=== PATIENT | female | born 1985 | race Caucasian/White ===

== ENCOUNTER 2017-05-23 12:01 | Inpatient (IN) | payer BC ==
[2017-05-23] MEDS ORDERED: OXYTOCIN/NORMAL SALINE 20 UNIT/1,000 ML RTUINJ ONE (12:29)
[2017-05-23] MEDS ORDERED: LIDOCAINE 1% INJ-PF (10 MG/ML) 30 ML SDV ONE ×2 (12:29→12:59)
[2017-05-23] MEDS ORDERED: MISOPROSTOL 0.2 MG TABLET ONE (12:29)
[2017-05-23] MEDS ORDERED: RINGERS SOLUTION,LACTATED 1,000 ML IV PRN (12:39)
[2017-05-23] MEDS ORDERED: RINGERS SOLUTION,LACTATED 1,000 ML IV ONE (12:39)
[2017-05-23 12:42] LABS: APPEARANCE,URINE SLIGHTLY-CLOUDY; BILIRUBIN,URINE NEGATIVE (NEGATIVE); GLUCOSE, URINE NEGATIVE (NEGATIVE); KETONES,URINE TRACE mg/dL (NEGATIVE); LEUKOCYTE ESTERASE,URINE NEGATIVE (NEGATIVE); NITRITE,URINE NEGATIVE (NEGATIVE); PROTEIN,URINE NEGATIVE (NEGATIVE); URINE SPECIFIC GRAVITY 1.011; UROBILINOGEN,URINE NEGATIVE mg/dL (<2.0)
[2017-05-23 13:09] LABS: URINE BARBITURATES SCREEN NEGATIVE; URINE METHADONE SCREEN NEGATIVE; URINE OPIATES LOW NEGATIVE; URINE PHENCYCLIDINE SCREEN NEGATIVE
[2017-05-23 13:27] LABS: ABSOLUTE BASOPHILS # (AUTO) 0.1 10^3/uL (0.0-0.2); ABSOLUTE LYMPHOCYTES (AUTO) 1.6 10^3/uL (0.5-4.7); ABSOLUTE MONOCYTES (AUTO) 0.6 10^3/uL (0.1-1.4); ABSOLUTE NEUT (AUTO) 7.4 10^3/uL (1.7-8.2); BASOPHILS % (AUTO) 0.6 % (0-2); EOSINOPHILS % (AUTO) 0.3 % (0-6); HEMATOCRIT 39.8 % (36.0-47.0); HEMOGLOBIN 13.8 g/dL (12.0-15.5); HGB HCT DIFFERENCE 1.6; LYMPHOCYTES % (AUTO) 16.6 % (13-45); MEAN CORPUSCULAR HEMOGLOBIN 29.7 pg (27.0-33.4); MEAN CORPUSCULAR HGB CONC 34.7 g/dL (32.0-36.0); MEAN CORPUSCULAR VOLUME 85 fl (80-97); MONOCYTES % (AUTO) 6.4 % (3-13); RED BLOOD COUNT 4.66 10^6/uL (3.72-5.28); RED CELL DISTRIBUTION WIDTH 13.7 % (11.5-14.0); SEGMENTED NEUTROPHILS % (AUTO) 76.1 % (42-78); WHITE BLOOD COUNT 9.7 10^3/uL (4.0-10.5)
[2017-05-23 13:47] LABS: ARTERIAL BLOOD BASE EXCESS -5.2 mmol/L
[2017-05-23] MEDS ORDERED: METHYLERGONOVINE MALEATE INJ/PF 0.2 MG/1 ML AMPULE ONE (13:54)
[2017-05-23] MEDS ORDERED: OXYCODONE-ACETAMINOPHEN 5-325 MG TABLET ONE (14:02)
[2017-05-23] MEDS ORDERED: DIBUCAINE 1% OINTMENT 28 GM TP PRN (15:39)
[2017-05-23] MEDS ORDERED: OXYTOCIN/NORMAL SALINE 1,000 ML IV PRN (15:39)
[2017-05-23] MEDS ORDERED: BENZOCAINE/MENTHOL AEROSOL SPRAY 56 ML TOP PRN (15:39)
[2017-05-23] MEDS ORDERED: DIPHENHYDRAMINE HCL 25 MG CAPSULE PO PRN (15:39)
[2017-05-23] MEDS ORDERED: MISOPROSTOL 0.2 MG TABLET PR ONE (15:39)
[2017-05-23] MEDS ORDERED: NA PHOS,M-B/NA PHOS,DI-BA (ADULT) 133 ML ENEMA PR PRN (15:39)
[2017-05-23] MEDS ORDERED: PSEUDOEPHEDRINE HCL 30 MG TABLET PO PRN (15:39)
[2017-05-23] MEDS ORDERED: ACETAMINOPHEN WITH CODEINE #3 TABLET PO PRN ×2 (15:39)
[2017-05-23] MEDS ORDERED: ACETAMINOPHEN 650 MG SUPP.RECT PR PRN (15:39)
[2017-05-23] MEDS ORDERED: METHYLERGONOVINE MALEATE INJ/PF 0.2 MG/1 ML AMPULE IM ONE (15:39)
[2017-05-23] MEDS ORDERED: DIPH/PERTUSS(ACELL)/TETANUS VAC/PF 0.5 ML SYR (>=10YO) IM PRN (15:39)
[2017-05-23] MEDS ORDERED: MAGNESIUM HYDROXIDE SUSP 30 ML UDCUP PO PRN (15:39)
[2017-05-23] MEDS ORDERED: PROMETHAZINE HCL 25 MG TABLET PO PRN (15:39)
[2017-05-23] MEDS ORDERED: MEASLES,MUMPS&RUBELLA VACC/PF 0.5 ML VIAL SUBCUT PRN (15:39)
[2017-05-23] MEDS ORDERED: PROMETHAZINE HCL 25 MG SUPP.RECT PR PRN (15:39)
[2017-05-23] MEDS ORDERED: GLYCERIN/WITCH HAZEL LEAF 1 EACH MED..PAD TP PRN (15:39)
[2017-05-23] MEDS ORDERED: PROMETHAZINE HCL INJ 25 MG/1 ML VIAL IV PRN (15:39)
--- NOTE | 2017-05-23 15:49 | Admission Physical ---
Datetime Report Generated by CPN: 05/23/2017 15:49 CURRENT ADMISSION Hx Assessment: The History has been Reviewed and is Current Chief Complaint: Uterine Contractions Indication for Induction: Not Applicable Admit Plan: Admit to Unit ALLERGIES Medication Allergies: No Medication Allergies: No Known Allergies (05/23/2017) Medication Allergies: none Latex: No Latex Allergies Food Allergies: none Environmental Allergies: none OBSTETRICAL HISTORY EDC: 05/30/2017 00:00 : 1 Para: 0 Term: 0 : 0 SAB: 0 IAB: 0 Ectopic: 0 Livin Cesareans: 0 VBACs: 0 Multiple Births: 0 Gestational Diabetes: No Rh Sensitization: No Incompetent Cervix: No DAVID: No Infertility: No ART Treatment: No Uterine Anomaly: No IUGR: No Hx Previous C/S: No Macrosomia: No Hx Loss/Stillborn: No PIH: No Hx : No Placenta Previa/Abruption: No Depression/PP Depression: No PTL/PROM: No Post Hemorrhage: No Current Procedures: Ultrasound SEE RECORDS Alcohol: No Marijuana : No Cocaine: No Other Illicit Drugs: No Cigarettes: Never Smoker. 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: No Heart Disease: No Hosp/Surgery: No Autoimmune Disorder: No Anesthetic Complications: No Kidney Disease: No Abnormal Pap Smear: No Neuro/Epilepsy: No Psychiatric Disorders: No Other Medical Diseases: No Hepatitis/Liver Disease: No Significant Family History: No Varicosities/Phlebitis: No Trauma/Violence : No Thyroid Dysfunction: No INFECTIOUS HISTORY Gonorrhea: No Genital Herpes: No Chlamydia: No Tuberculosis: No Syphilis: No Hepatitis: No HIV/AIDS Exposure: No Rash or Viral Illness: No HPV: No PHYSICAL EXAM General: Normal HEENT: Normal Neurologic: Normal Thyroid: Normal Heart: Normal Lungs: Normal Breast: Deferred Back: Normal Abdomen: Normal Genitourinary Exam: Normal Extremities: Normal DTRs: Normal Pelvic Type: Adequate Physical Exam Comments: GBS neg Rubella non immune Vital Signs: Reviewed VAGINAL EXAM Dilatation: 9 Effacement: 100 Station: 0 MEMBRANES Membranes: Bulging FETUS A EGA: 39.0 Monitoring: External US FHR- Baseline: 130 Variability: Moderate 6-25bpm Accelerations: 15X15 Decelerations: None Presentation: Vertex Admit Comment: Admitted to labor and delivery in active labor, started at 0600, VE 9/100/vtx/ bulging BOW, ruptured. clear fluid, Cat 1 strip, uc's q 2-3 min x 60 sec Admit, anticipate , plan pudenal block by Dr. Teran PLANS FOR LABOR AND DELIVERY Labor and Delivery: None Pain Management: None Feeding Preference: Breast Benefit of Breast Feed Discussed: Yes Circumcision: N/A INFORMED CONSENT Assignment: Betty Teran MD Signature: with User ID: [email or web address] Signature: with User ID: [email or web address] : with User ID: [email or web address] : with User ID: [email or web address]
--- NOTE | 2017-05-23 17:04 | Delivery Summary ---
Del Sum A-C Datetime Report Generated by CPN: 05/23/2017 17:04 DELIVERY PERSONNEL DELIVERY PERSONNEL: [phone] Delivery Doctor:: Nimisha Dinero CNM Labor and Delivery Nurse:: Carlie Yuan RNtraining engineer Nurse:: DENISSE Baires Nursery Nurse:: Johnna Skaggs RN Flight Radio Operator/ROOFING MACHINE TENDER: Cristal Paz CNA II Flight Radio Operator/ROOFING MACHINE TENDER: Nuzhat Tang, PERFUME COMPOUNDER MATERNAL INFORMATION Delivery Anesthesia: Pudendal Medications After Delivery: Pitocin Bolus-Please Comment; Pitocin Drip 20 Units/1000ml NSS Meds After Delivery Comment: Pitocin 20 units in 1 L NS bolusing per order Estimated Blood Loss (ml): 400 Maternal Complications: Precipitous Labor (<3hrs) Provider Comments: Dr. Teran performed a pudendal block bilaterally and started pushing immediately. viable female from OA to JENNIFER over intact perineum and left periurethral, cord gas and cord blood to lab. Spont delivery of grossly normal intact placenta, with 3 VC, several clots with placenta, ? small abruption, periurethral repaired with 3-0 chromic without difficult, cath for urethral patency, large amount of urine. EBL 400cc, uterine atony, massage, Pitocin, cytotec 600 mcg and Methergine 0.2 mg Baby was placed on mothers abd, nursery in attendance for delivery mom and baby remain in recovery in stable condition (Annotations: Data stored by CPN on behalf of user) LABOR SUMMARY EDC: 05/30/2017 00:00 No. Babies in Womb: 1 Attempted: No Labor Anesthesia: Intrathecal LABOR INFORMATION Reason for Induction: Not Applicable Onset of Labor: 05/23/2017 06:00 Complete Dilatation: 05/23/2017 13:13 Oxytocin: N/A Group B Beta Strep: negative Antibiotics # of Doses: 0 Antibiotics Time of Last Dose: n/a Name of Antibiotic Given: n/a Steroids Given: None Reason Steroids Not Administered: Not Applicable MEMBRANES Membranes Rupture Method: Artificial Rupture of Membranes: 05/23/2017 12:27 Length of Rupture (hr): 1.02 Amniotic Fluid Color: Clear Amniotic Fluid Amount: Moderate Amniotic Fluid Odor: Normal STAGES OF LABOR Stage 1 hr: 7 Stage 1 min: 13 Stage 2 hr: 0 Stage 2 min: 15 Stage 3 hr: 0 Stage 3 min: 16 Total Time in Labor hr: 7 Total Time in Labor min: 44 VAGINAL DELIVERY Episiotomy: None Laceration Extension: First Degree Laceration Type: Periurethral Laceration Repair: Yes Sponge Count Correct: N/A Sharps Count Correct: No CSECTION DELIVERY Primary Indication: N/A Secondary Indication: N/A CSection Incidence: N/A Labor: N/A Elective: N/A CSection Incision: N/A BABY A INFORMATION Delivery Date/Time: 05/23/2017 13:28 Method of Delivery: Vaginal Born in Route : No : N/A Forceps: N/A Vacuum Extraction: N/A Shoulder Dystocia : No PRESENTATION/POSITION BABY A Presentation: Cephalic Cephalic Presentation: Vertex Vertex Position: Left Occipital Anterior Breech Presentation: N/A PLACENTA INFORMATION BABY A Placenta Delivery Time : 05/23/2017 13:44 Placenta Method of Delivery: Spontaneous Placenta Status: Delivered SCORES BABY A Heart Rate 1 min: >100 bpm Resp Effort 1 min: Good Cry Reflex Irritability 1 min: Cough or Sneeze or Pulls Away Muscle Tone 1 min: Some Flexion of Extremities Color 1 min: Blue/Pale Resuscitation Effort 1 min: Tactile Stimulation SCORE 1 MIN: 7 Heart Rate 5 min: >100 bpm Resp Effort 5 min: Good Cry Reflex Irritability 5 min: Cough or Sneeze or Pulls Away Muscle Tone 5 min: Active Motion Color 5 min: Body [place], Extremities Blue Resuscitation Effort 5 min: N/A SCORE 5 MIN: 9 Resuscitation Effort 10 min: N/A INFORMATION BABY A Gestational Age at Delivery: 39.0 Gestational Status: Full Term- 39- 40.6 Weeks Outcome : Liveborn Condition : Stable Infant Sex: Female IDENTIFICATION BABY A Verification Date/Time: 05/23/2017 13:39 ID Band Number: [id number] Mother's Name Verified: Yes Infant RN Verifying : Echo Yuan, DAVID, AWojciech Paz, ALEXUS WEIGHT/LENGTH BABY A Birthweight (gm): 3400 Infant Weight (lb): 7 Weight (oz): 8 Length (in): 19.25 Infant Length (cm): 48.90 CORD INFORMATION BABY A No. Cord Vessels: 3 Nuchal Cord : N/A Cord Blood Taken: Yes-For Storage (Mom's Blood type +) Infant Suction: Mouth; Nose ASSESSMENT BABY A Complications: None Physical Findings at Delivery: Within Normal Limits Infant Respirations: Appears Normal Skin to Skin: Yes Skin to Skin Time (min): 60 Coal Dumping Equipment Operator/ALS Called : No Infant Care By: Vito Katz RN Transferred To: Remains with Mother BABY B INFORMATION : N/A
[2017-05-23] MEDS: DOCUSATE SODIUM 100 MG CAPSULE PO SCH (17:28)
[2017-05-23] MEDS: FERROUS SULFATE 325 MG TABLET PO SCH (17:29)
[2017-05-23] MEDS: FAMOTIDINE 20 MG TABLET PO SCH (21:40)
[2017-05-23] MEDS: IBUPROFEN 800 MG TABLET PO SCH (21:41)
[2017-05-24] MEDS: IBUPROFEN 800 MG TABLET PO SCH ×3 (06:12→21:03)
[2017-05-24 07:55] LABS: HEMATOCRIT 32.9 % (36.0-47.0); HGB HCT DIFFERENCE 1.3; MEAN CORPUSCULAR HEMOGLOBIN 29.7 pg (27.0-33.4); MEAN CORPUSCULAR HGB CONC 34.6 g/dL (32.0-36.0); MEAN CORPUSCULAR VOLUME 86 fl (80-97); RED BLOOD COUNT 3.83 10^6/uL (3.72-5.28); RED CELL DISTRIBUTION WIDTH 13.7 % (11.5-14.0); WHITE BLOOD COUNT 10.7 10^3/uL (4.0-10.5)
[2017-05-24 08:03] LABS: HEMOGLOBIN 11.4 g/dL (12.0-15.5)
[2017-05-24] MEDS: FERROUS SULFATE 325 MG TABLET PO SCH ×2 (09:51→17:38)
[2017-05-24] MEDS: PRENATAL VITAMIN W-O CA NO5/FE FUMARATE/FA CAPSULE PO SCH (09:51)
[2017-05-24] MEDS: SENNOSIDES/DOCUSATE 8.6-50 MG 1 EACH TABLET PO SCH (09:51)
[2017-05-24] MEDS: FAMOTIDINE 20 MG TABLET PO SCH ×2 (09:51→21:03)
[2017-05-24] MEDS: DOCUSATE SODIUM 100 MG CAPSULE PO SCH ×2 (09:51→17:38)
--- NOTE | 2017-05-24 10:06 | PDOC PROGRESS REPORT ---
Subjective-OB Subjective: Post Delivery Day: 1 30 year old. Denies any needs at this time, states lochia is stable, pain well controlled, voiding without difficulty. Physical Exam (OB) Vital Signs: Temp Pulse Resp BP Pulse Ox 97.9 F 81 20 102/61 97 05/24/17 08:53 05/24/17 08:53 05/24/17 08:53 05/24/17 08:53 05/24/17 08:53 Intake & Output 05/23/17 05/24/17 05/25/17 06:59 06:59 06:59 Weight 81.55 kg - PIH/Pre-Eclampsia Clonus: Negative - Lochia Lochia Amount: Scant < 10 ml Lochia Color: Rubra/Red - Abdomen Description: Soft, Round Hernia Present: No Fundal Description: Firm, Midline Fundal Height: u/u - u/2 Objective-Diagnostic Laboratory: 05/24/17 07:32 05/23/17 05/23/17 05/23/17 12:09 13:12 13:12 WBC 9.7 RBC 4.66 Hgb 13.8 Hct 39.8 MCV 85 MCH 29.7 MCHC 34.7 RDW 13.7 Plt Count 191 Seg Neutrophils % 76.1 Lymphocytes % 16.6 Monocytes % 6.4 Eosinophils % 0.3 Basophils % 0.6 Absolute Neutrophils 7.4 Absolute Lymphocytes 1.6 Absolute Monocytes 0.6 Absolute Eosinophils 0.0 Absolute Basophils 0.1 Carbonic Acid HCO3/H2CO3 Ratio ABG pH ABG pCO2 ABG pO2 ABG HCO3 ABG O2 Saturation ABG Base Excess FiO2 Urine Color YELLOW Urine Appearance SLIGHTLY-CLOUDY Urine pH 5.0 Ur Specific [place] 1.011 Urine Protein NEGATIVE Urine Glucose (UA) NEGATIVE Urine Ketones TRACE H Urine Blood SMALL H Urine Nitrite NEGATIVE Ur Leukocyte Esterase NEGATIVE Blood Type A POSITIVE Antibody Screen NEGATIVE 05/23/17 05/24/17 13:28 07:32 WBC 10.7 H RBC 3.83 Hgb 11.4 L D Hct 32.9 L MCV 86 MCH 29.7 MCHC 34.6 RDW 13.7 Plt Count 140 L Seg Neutrophils % Lymphocytes % Monocytes % Eosinophils % Basophils % Absolute Neutrophils Absolute Lymphocytes Absolute Monocytes Absolute Eosinophils Absolute Basophils Carbonic Acid 1.54 H HCO3/H2CO3 Ratio 14:1 ABG pH 7.26 L ABG pCO2 51.0 H ABG pO2 Not Reportable ABG HCO3 22.3 ABG O2 Saturation Not Reportable ABG Base Excess -5.2 FiO2 CORD BLOOD Urine Color Urine Appearance Urine pH Ur Specific [place] Urine Protein Urine Glucose (UA) Urine Ketones Urine Blood Urine Nitrite Ur Leukocyte Esterase Blood Type Antibody Screen Assessment and Plan(PN) - Assessment and Plan (1) Vaginal delivery Is this a current diagnosis for this admission?: YesPlan: routine pp care - Time Spent with Patient Time with patient: Less than 15 minutes Critical Time spent with patient: Less than 15 minutes Medications reviewed and adjusted accordingly: Yes - Disposition Anticipated Discharge: Home Within: within 24 hours
[2017-05-25] MEDS: IBUPROFEN 800 MG TABLET PO SCH (05:09)
[2017-05-25] MEDS: FERROUS SULFATE 325 MG TABLET PO SCH (09:29)
[2017-05-25] MEDS: DOCUSATE SODIUM 100 MG CAPSULE PO SCH (09:29)
[2017-05-25] MEDS: PRENATAL VITAMIN W-O CA NO5/FE FUMARATE/FA CAPSULE PO SCH (09:29)
[2017-05-25] MEDS: FAMOTIDINE 20 MG TABLET PO SCH (09:29)
[2017-05-25] MEDS: SENNOSIDES/DOCUSATE 8.6-50 MG 1 EACH TABLET PO SCH (09:29)
[2017-05-25 10:19] VITALS: BP 102/61
--- NOTE | 2017-05-25 12:34 | PDOC DISCHARGE SUMMARY ---
Final Diagnosis Discharge Date: 05/25/17 Discharge Data - Discharge Medication Home Medications: Pnv No.122/Iron/Folic Acid [ Multi Tablet] 1 tab PO DAILY 05/23/17 Ibuprofen [Motrin 800 mg Tablet] 800 mg PO Q8HP PRN #60 tablet 05/25/17 Reason(s) for Admission: Onset of Labor Procedures: Ultrasound Intrapartum Procedure(s): Spontaneous Vaginal Delivery, Other - pudendal block Complication(s): Laceration-Periurethral Laceration-Degree: 1st - Diagnosis Test Laboratory: Temp Pulse Resp BP Pulse Ox 98.2 F 84 15 102/56 L 99 05/25/17 07:55 05/25/17 07:55 05/25/17 07:55 05/25/17 07:55 05/25/17 07:55 05/23/17 05/23/17 05/24/17 12:09 13:12 07:32 RBC 4.66 3.83 Hgb 13.8 11.4 L D Hct 39.8 32.9 L Urine Opiates Screen NEGATIVE - Discharge information/Instructions Discharge Activity: Activity As Tolerated, Balance Activity w/Rest, No Lifting Over 10 Pounds, No Lifting/Push/Pulling, Pelvic Rest, Slowly Increase Activity, No tub bath Discharge Diet: As Tolerated, Regular Disposition: HOME, SELF-CARE Follow up with: [facility] in: 4, Weeks
== END 2017-05-25 14:08 | disposition home or self-care (01) | DRG 775 ==
LOC: LC 12:01 → LR 12:30 → 2S 15:47
PROVIDERS: ADMIT Student in an Organized Health Care Education/Training Program; ATTEND Student in an Organized Health Care Education/Training Program
PROC: 10E0XZZ Delivery of Products of Conception, External Approach (ICD-10-PCS; principal; 2017-05-23)
PROC: 0UQMXZZ Repair Vulva, External Approach (ICD-10-PCS; 2017-05-23)
PROC: 10907ZC Drainage of Amniotic Fluid, Therapeutic from Products of Conception, Via Natural or Artificial Opening (ICD-10-PCS; 2017-05-23)
PROC: 4A1HXCZ Monitoring of Products of Conception, Cardiac Rate, External Approach (ICD-10-PCS; 2017-05-23)
DX: O62.3 Precipitate labor (principal); O71.82 Other specified trauma to perineum and vulva; Z3A.39 39 weeks gestation of pregnancy; Z37.0 Single live birth
CPT/HCPCS: 36415; 80307; 81005; 82803; 85025; 85027; 86592; 86850; 86900; 86901; 90715; J2210; J2590; J3490